=== PATIENT | male | born 1960 | race Caucasian/White ===

== ENCOUNTER 2025-06-05 10:29 | Outpatient (REF) | payer MEDICARE, SELFPAY ==
[2025-06-05 15:42] LABS: Abs Immature Grans 0.01 10^3/uL (0.0-0.06); HCT 45.1 % (40.0-50.0); HGB 16.0 g/dL (13.5-17.5); Immature Grans % 0.2 %; MCH 32.0 pg (27.0-33.0); MCHC 35.5 % (32.0-36.0); MCV 90 fL (80-95); MPV 9.3 fL (8.0-11.0); Platelet Count 350 10^3/uL (130-400); RBC 5.00 10^6/uL (4.36-5.78); RDW 12.9 % (11.8-14.1); RDW-SD 42.2 fL; WBC 6.57 10^3/uL (4.4-10.8)
[2025-06-05 16:24] LABS: Hemoglobin A1C 5.5 % (<5.7)
[2025-06-05 16:37] LABS: ALT 61 U/L (16-63); AST 29 U/L (15-37); Albumin 4.5 g/dL (3.4-5.0); Alkaline Phosphatase 85 U/L (46-116); Anion Gap 13.4 mmol/L (3-11); BUN 19 mg/dL (7-18); Bilirubin, Total 0.4 mg/dL (0.2-1.0); CO2 23.6 mmol/L (21.0-32.0); Calcium 9.4 mg/dL (8.5-10.1); Calculated LDL 166 mg/dL (<100); Chloride 101 mmol/L (98-107); Cholesterol 238 mg/dL (<200); Estimated GFR 83.01 (mL/min/1.73m2); Glucose 102 mg/dL (74-106); HDL Cholesterol 51 mg/dL (>or=40); Potassium 4.7 mmol/L (3.5-5.1); Sodium 138 mmol/L (136-145); TSH 1.40 uIU/mL (0.36-3.74); Total Protein 7.9 g/dL (6.4-8.2); Triglyceride 105 mg/dL (<150)
[2025-06-06 20:03] LABS: PSA, Diagnostic 0.4 ng/mL (<=4.5)
== END 2025-06-05 10:30 | disposition home or self-care (01) ==
LOC: NCHCN 10:29
PROVIDERS: Visit Provider Family Medicine
DX: Z00.00 Encounter for general adult medical examination without abnormal findings (principal); R35.1 Nocturia; E78.5 Hyperlipidemia, unspecified
CPT/HCPCS: 80053; 80061; 83036; 84153; 84443; 85025